=== PATIENT | male | born 1970 ===

== ENCOUNTER 2017-10-18 09:41 | Emergency (ER) | payer OTHER ==
[~2017-10-18] VITALS: Ht 175.3 cm; Wt 108.0 kg
[2017-10-18] MEDS ORDERED: ZESTRIL2.5 MG (09:49)
[2017-10-18] MEDS ORDERED: TUSSI PRES-B L120 M1 PO (14:38)
[2017-10-18] MEDS ORDERED: MEDROLPACK PO (14:38)
[2017-10-18] MEDS ORDERED: LEVAQUIN750 MG PO (14:38)
== END 2017-10-18 14:47 | disposition home or self-care (01) ==
LOC: ER 09:41
DX: J98.8 Other specified respiratory disorders (principal)